=== PATIENT | female | born 1935 | race Caucasian/White ===

== ENCOUNTER 2017-06-20 05:42 | Day surgery (SDC) | payer OTHER ==
[~2017-06-20] VITALS: Ht 157.5 cm; Wt 86.1 kg
[~2017-06-20 05:42] MED LIST: ACID CONTROL150 MG PO; ALDACTONE25 MG PO; LIPITOR10 MG PO; LOTENSIN20 MG PO; NORVASC5 MG PO; PRADAXA75 MG PO; ROCALTROL0.25 MCG PO; TENORMIN50 MG PO; ZOLOFT50 MG PO; ZYLOPRIM100 MG PO
[2017-06-20 06:12] VITALS: BP 175/81
[2017-06-20 06:41] LABS: HEMOGLOBIN 11.5 G/DL (11.9-15.5); MCV 95.1 FL (83-99)
[2017-06-20 07:08] LABS: CHLORIDE 105 MEQ/L (99-109); CREATININE 1.4 MG/DL (0.6-1.3); GFR ESTIMATE (CALCULATED) 39 mL/min/; GLUCOSE 120 mg/dL (70-99); SODIUM 142 MEQ/L (136-147); UREA NITROGEN (BUN) 32 mg/dL (9-23)
[2017-06-20] MEDS ORDERED: NORCO 5/3251 TABLET PO (08:25)
[2017-06-20 09:50] VITALS: BP 146/69
[2017-06-20 10:45] VITALS: BP 139/64
== END 2017-06-20 10:52 | disposition home or self-care (01) ==
LOC: SDC 05:42
PROVIDERS: Obstetrics & Gynecology
PROC: 0UDB8ZX Extraction of Endometrium, Via Natural or Artificial Opening Endoscopic, Diagnostic (ICD-10-PCS; principal; 2017-06-20)
PROC: 0UB98ZX Excision of Uterus, Via Natural or Artificial Opening Endoscopic, Diagnostic (ICD-10-PCS; principal; 2017-06-20)
DX: N84.0 Polyp of corpus uteri (principal); N95.0 Postmenopausal bleeding; N81.3 Complete uterovaginal prolapse; I48.91 Unspecified atrial fibrillation; I10 Essential (primary) hypertension; E78.5 Hyperlipidemia, unspecified; E11.9 Type 2 diabetes mellitus without complications; Z87.891 Personal history of nicotine dependence; Z79.01 Long term (current) use of anticoagulants
CPT/HCPCS: 80048; 85014; 85018; 88305; J1170; J2405; J3010